=== PATIENT | male | born 1935 | race Two or more races ===

== ENCOUNTER 2020-05-29 00:34 | Emergency (ER) | payer MEDICARE, OTHER ==
[~2020-05-29] VITALS: Ht 170.2 cm; Wt 76.2 kg
--- NOTE | 2020-05-29 01:17 | NUR ---
BLOOD DRAWN AND SENT TO THE LAB.
[2020-05-29 01:23] LABS: BASOPHILS % (AUTO) 0.6 % (0.0-2.0); EOSINOPHILS % (AUTO) 0.5 % (0.0-6.0); HEMATOCRIT 44 % (39-51); HEMOGLOBIN 14.5 g/dL (13.5-17.5); LYMPHOCYTES # (AUTO) 0.8 /CMM (0.8-4.8); LYMPHOCYTES % (AUTO) 14.4 % (20.0-44.0); MEAN CORPUSCULAR HGB CONC 33 g/dl (31.0-36.0); MEAN CORPUSCULAR VOLUME 88 fL (80-96); MONOCYTES # (AUTO) 0.4 /CMM (0.1-1.30); MONOCYTES % (AUTO) 8.1 % (2.0-12.0); NEUTROPHILS % (AUTO) 76.4 % (43.0-81.0); PLATELET COUNT (AUTO) 132 /CMM (150-450); RED BLOOD CELL COUNT(AUTO) 4.96 MIL/uL (4.5-6.0); WHITE BLOOD COUNT (AUTO) 5.2 K/uL (4.3-11.0)
--- NOTE | 2020-05-29 01:25 | NUR ---
PATIENT TAKEN TO CT.
[2020-05-29] MEDS ORDERED: LIDOCAINE 2% JEL UROJET 10 ML MM ONE (01:38)
[2020-05-29 01:42] LABS: CALCIUM, SERUM 8.3 mg/dL (8.5-10.1); CARBON DIOXIDE 25 mmol/L (21-32); CHLORIDE 105 mmol/L (98-107); CREATININE 1.1 mg/dL (0.6-1.3); GLUCOSE 106 mg/dL (74-106); POTASSIUM 4.1 mmol/L (3.5-5.1); SODIUM SERUM 140 mmol/L (136-145); UREA NITROGEN, BLOOD 20 mg/dL (7-18)
[2020-05-29 01:50] LABS: ALANINE AMINOTRANSFERASE 33 U/L (12-78); ALKALINE PHOSPHATASE 83 U/L (46-116); ASPARTATE AMINOTRANSFERASE 28 U/L (15-37); BILIRUBIN,DIRECT 0.1 mg/dL (0.0-0.2); BILIRUBIN,TOTAL 0.6 mg/dL (0.2-1.0); TOTAL PROTEIN, SERUM 7.1 g/dL (6.4-8.2)
--- NOTE | 2020-05-29 01:50 | NUR ---
URINE COLLECTED VIA STRAIGHT CATH PER DR. JOYNER. SENT TO LAB
[2020-05-29 01:56] LABS: ACETAMINOPHEN 0 ug/ml (10-30)
[2020-05-29 02:27] LABS: BILIRUBIN,URINE NEGATIVE (NEGATIVE); COLOR,URINE YELLOW (YELLOW); LEUKOCYTE ESTERASE ,URINE NEGATIVE (NEGATIVE); NITRITE, URINE NEGATIVE (NEGATIVE); PROTEIN,URINE TRACE mg/dl (NEGATIVE); UGLUCOSE NEGATIVE (NEGATIVE)
--- NOTE | 2020-05-29 02:31 | NUR ---
REPORT GIVEN TO EMORY STAFF AT [facility] FOR [facility].
--- NOTE | 2020-05-29 02:46 | NUR ---
SPOKE WITH VANIA FROM [facility] FOR [facility] ETA [id number].
[2020-05-29 02:51] LABS: BACTERIA,URINE None seen /HPF (None Seen); RBC,URINE 21-50 /HPF (0-2); SQUAMOUS EPITHELIAL CELL,UR Few /HPF (None Seen); WBC,URINE 0-2 /HPF (0-3)
--- NOTE | 2020-05-29 07:24 | NUR ---
REPORT GIVEN TO CELINA MEI FOR [facility].
[2020-05-29 07:31] VITALS: BP 123/74
--- NOTE | 2020-05-29 07:31 | NUR ---
REPORT GIVEN TO [facility] FOR [facility]. AND TRANSFERRIN RESPONSIBILITIES.
--- NOTE | 2020-05-29 07:31 | NUR ---
IV removed. Catheter intact and site benign. Pressure and 4x4 applied to site. No bleeding noted.
== END 2020-05-29 07:32 ==
LOC: ER 00:41
DX: U07.1 COVID-19 (principal); G30.9 Alzheimer's disease, unspecified; F02.80 Dementia in other diseases classified elsewhere, unspecified severity, without behavioral disturbance, psychotic disturbance, mood disturbance, and anxiety; I45.10 Unspecified right bundle-branch block; Z95.0 Presence of cardiac pacemaker
CPT/HCPCS: 36415; 70450; 71045; 80048; 80076; 80299; 80307; 81001; 82140; 84443; 84484; 85025; 85730; 87086; 87426; 93005; 99285; J3490; J7030; C9803